=== PATIENT | male | born 1990 | race Caucasian/White ===

== ENCOUNTER 2016-12-21 11:00 | Outpatient (CLI) | payer OTHER ==
[2016-12-21 12:16] LABS: Hematocrit 44.1 % (42.0-52.0); Mean Platelet Volume 7.9 fL (7.4-10.4); Red Blood Cell (RBC) Count 4.97 mill/uL (4.70-6.10); White Blood Cell (WBC) Count 6.6 thou/uL (4.8-10.8)
== END 2016-12-21 11:01 | disposition home or self-care (01) ==
LOC: LABBT 11:00
PROVIDERS: ATTEND Orthopaedic Surgery
DX: Z01.812 Encounter for preprocedural laboratory examination (principal); S83.281A Other tear of lateral meniscus, current injury, right knee, initial encounter
CPT/HCPCS: 85027

== ENCOUNTER 2016-12-22 07:32 | Day surgery (SDC) | payer OTHER ==
[2016-12-21 11:22] VITALS: BMI 36.2
[2016-12-22] MEDS ORDERED: Midazolam HCl 2 mg/2 ml Vial ONE (09:27)
[2016-12-22] MEDS ORDERED: Fentanyl 100 MCG/2 ML VIAL ONE ×2 (09:27→10:55)
[2016-12-22] MEDS ORDERED: Ondansetron HCl/PF 4 MG/2 ML Vial ONE (09:31)
[2016-12-22] MEDS ORDERED: Ketorolac Tromethamine 30 MG/ML VIAL ONE (09:31)
[2016-12-22] MEDS ORDERED: Dexamethasone 20 MG/5 ML VIAL ONE (09:31)
[2016-12-22] MEDS ORDERED: Propofol 200 MG/20 ML VIAL ONE ×2 (09:31)
[2016-12-22] MEDS ORDERED: Lidocaine 1% (PF) 30 ML VIAL ONE (09:44)
[2016-12-22] MEDS ORDERED: Bupivacaine HCl 0.5%/Epinephrine 1:200,000/PF 30 ml Vial ONE (09:44)
[2016-12-22] MEDS ORDERED: HYDROcodone/Acetaminophen 5/325 mg Tablet ONE (12:28)
--- NOTE | 2016-12-22 13:54 | OP ---
DATE OF PROCEDURE: 12/22/2016 PREOPERATIVE DIAGNOSES: Right lateral meniscus tear with a right parameniscal cyst. POSTOPERATIVE DIAGNOSES: Right lateral meniscus tear with a right parameniscal cyst. PROCEDURE PERFORMED: 1. Right arthroscopic medial meniscus debridement. 2. Right open excision of parameniscal cyst with closure. STAFF: Berto Bowie M.D. BUS OR TRUCK GARAGE MECHANIC: None. ANESTHESIA: Cisse. The patient received LMA intubation, he received 25 mL of Marcaine 0.5% with epinephrine intraarticularly, which was washed out and then 25 mL of lidocaine were used both locally on open incision as well as intraarticularly. ESTIMATED BLOOD LOSS: 50 mL. TOURNIQUET TIME: 43 minutes. ANTIBIOTICS: Ancef 2 grams. IMPLANTS: None. COMPLICATIONS: None. HISTORY OF PRESENT ILLNESS: Mr. Sams is a pleasant 26-year-old male who presented after twisting and injuring his knee , had pain immediately in his lateral knee, it occurred earlier this month. The patient had MRI from [facility] showed a 3 cm parameniscal cyst with a radial tear of the meniscus, lateral meniscus. I discussed with patient the risks and benefits of an arthroscopic meniscectomy with possible repair and parameniscal excision open. He understood these risks and benefits including pain, scar, bleeding, infection , damage to vital structures, decreased range of motion or strength, stiffness, continued pain, damage to vital structures, loss of life. He understood these risks and benefits and elected to proceed. PROCEDURE IN DETAIL: Time out was performed designating the patient's right lower extremity as the operative site based on sight, consents, markings. After timeout, the patient's anterolateral anteromedial port, we excised the fat pad, ACL, PCL, medial meniscus was completely intact. The patellofemoral joint, looked good. There was nothing in the medial and lateral gutters. I looked laterally and there was a radial tear in the lateral meniscus which I used biters and shaver to smooth to a stable remnant. It was not destabilized and was attached as I probed it circumferentially. After completing this, I removed my arthroscopic equipment and moved to my lateral incision. I had palpated the meniscal cyst under the IT band just lateral to the lateral aspect of the lateral femoral condyle. I made an incision down obliquely down through skin, down through the fat pad, down to the IT band, I came upon the fascial plane, I had popped into the bulge of the parameniscal cyst. I made an incision to remove gelatinous material, excised pulling traction and truncating , excising out the cyst, what remnant that I had, I had a poke hole that went into the joint which is just below the meniscus. I used 0 Vicryl in figure-of- eight stitches to imbricate that the cyst on top of itself to close down the space and close the hole in the capsule. I then closed the IT band with 0 and then I closed subcu with 2-0 and nylon sutures. The patient will be weightbearing as tolerated, use crutches to mobilize. Use pain medications. The patient will follow up with me in 2 weeks. SCOTT
== END 2016-12-22 13:52 | disposition home or self-care (01) ==
LOC: SDC 07:32
PROVIDERS: ATTEND Orthopaedic Surgery
PROC: 0SBC4ZZ Excision of Right Knee Joint, Percutaneous Endoscopic Approach (ICD-10-PCS; principal; 2016-12-22)
PROC: 0SBC0ZZ Excision of Right Knee Joint, Open Approach (ICD-10-PCS; principal; 2016-12-22)
DX: S83.281A Other tear of lateral meniscus, current injury, right knee, initial encounter (principal); M23.051 Cystic meniscus, posterior horn of lateral meniscus, right knee; I49.9 Cardiac arrhythmia, unspecified; Z98.890 Other specified postprocedural states
CPT/HCPCS: 96374; G8978-GP-CI; G8979-GP-CI; G8980-GP-CI; J0670; J1100; J1885; J2001; J2250; J2405; J2704; J3010

== ENCOUNTER 2017-04-21 19:30 | Emergency (ER) | payer OTHER | END 2017-04-21 19:45 | disposition left against medical advice (07) | LOC: ERS 19:30 | DX: Z53.21 Procedure and treatment not carried out due to patient leaving prior to being seen by health care provider (principal) ==

== ENCOUNTER 2024-03-24 10:45 | Emergency (ER) | payer BC, SELFPAY ==
[2024-03-24 11:06] LABS: Bacteria/HPF None Seen HPF (None Seen); Bilirubin Negative (Negative); Blood, Urine 1+ (Negative); CAUTI Indications for Culture Dysuria,urgency,freq; Clarity Clear (Clear); Glucose, Urine (Dipstick) Normal (Negative); Ketone, Urine Negative (Negative); Leukocyte Negative Leu/uL (Negative); Nitrite Negative (Negative); Protein, Urine (Dipstick) Negative (Neg-Trace); RBC/HPF 0-3 HPF (0-3); Specific Gravity, Urine 1.021 (1.002-1.036); Squamous Epithelial 0-3 HPF (0-3); Urobilinogen Normal mg/dL (Less than 2); WBC/HPF 0-3 HPF (0-3)
[2024-03-24 11:11] LABS: Urine Culture Reflex No No
[2024-03-24 12:10] LABS: %Basophils 1.5 % (0.0-1.0); %Eosinophils 2.9 % (0.0-10.0); %Lymphocytes 44.8 % (21.0-51.0); %Neutrophils 44.7 % (42.0-75.0); Hematocrit 43.2 % (42.0-52.0); Hemoglobin 14.5 g/dL (14.0-18.0); Mean Corpuscular HGB CONC 33.6 g/dL (32.0-36.0); Mean Corpuscular Hemoglobin 29.4 pg (27.0-31.0); Mean Corpuscular Volume 87.4 fL (78.0-98.0); Mean Platelet Volume 9.8 fL (7.4-10.4); Platelet Count 372 10x3/uL (130-400); RBC Distribution Width 12.7 % (11.5-14.5); Red Blood Cell (RBC) Count 4.94 mill/uL (4.70-6.10)
[2024-03-24 12:21] LABS: ALT (SGPT) 53 U/L (8-55); AST (SGOT) 31 U/L (5-34); Albumin 4.3 g/dL (3.5-5.0); Alkaline Phosphatase 60 U/L (40-110); Anion Gap 12 mmol/L (10-20); BUN (Urea Nitrogen) 10 mg/dL (8.9-20.6); Bilirubin, Total 0.7 mg/dL (0.2-1.2); Calc. Creatinine Clearance 0 mL/min (70-130); Calcium 9.5 mg/dL (7.8-10.44); Carbon Dioxide 25 mmol/L (22-29); Chloride 105 mmol/L (98-107); Estimated GFR 117; Globulin 3.7 g/dL (2.4-3.5); Glucose 96 mg/dL (70-105); Potassium 4.5 mmol/L (3.5-5.1); Sodium 137 mmol/L (136-145)
== END 2024-03-24 12:34 | disposition home or self-care (01) ==
LOC: ERS 10:45
DX: R31.9 Hematuria, unspecified (principal)
CPT/HCPCS: 36415; 74176; 80053; 81001; 85025